=== PATIENT | female | born 1950 | race Caucasian/White ===

== ENCOUNTER 2016-10-29 14:13 | Outpatient (RCR) | payer BC ==
[~2016-10-29 14:13] MED LIST: FERR-57 PO; OMEP-10 GT; VITAMINE C PO
--- OUTSIDE RECORDS SUMMARY | 2016-10-29 14:17 | XMS REPORT | Continuity of Care Document ---
Author Author [facility] Organization [facility] Address Unknown Phone Unavailable Care Team Providers Care Net Technical Architect Name Role Phone ENZO HUGGINS MD PCP Insurance Providers Payer Name Policy Number Subscriber Name Relationship [facility] [id number] Grace Orozco W Jr G8 Other [employer] [id number] Cheyenne Orozco 18 Self / Same As Patient Advance Directives Directive Response Recorded Date/Time Advance Directives No 12/29/14 12:21pm Health Care Power of Director Trial No 12/29/14 12:21pm Organ Donor Yes 12/29/14 12:21pm Problems No known problems or medical conditions. Medications Medication Dose Route Sig Days/Qty Instructions Order Date Discontinued Date Status Ferrous Sulfate 325 Mg PO DAILY 12/29/14 Active [Vitamine C] 1 PO DAILY 12/29/14 Active Omeprazole 20 Mg GT DAILY 30 Qty 12/29/14 Active Social History Social History Problem Response Recorded Date/Time Recent Foreign Travel N SEE [facility] 01/09/2015 10:38am Do you dip or chew tobacco? No 12/29/2014 12:18pm Hospital Discharge Instructions No hospital discharge instructions. Plan of Care No plan of care. Functional Status No functional status results. Allergies, Adverse Reactions, Alerts Allergen Type Severity Reaction Status Last Updated No Known Drug Allergies Active 12/29/14 Immunizations Name Given Type Date of Pneumonia Vaccine 12/29/09 Historical Vital Signs No known vital signs results. Results Laboratory Results Test Name Result Units Flags Reference Collection Date/Time Result Date/ Time Comments White Blood Count 6.2 10^3/uL 4.3-11.0 01/09/2015 10:56am 01/09/2015 11 :06am Red Blood Count 4.81 10^6/uL 4.35-5.85 01/09/2015 10:56am 01/09/2015 11 :06am Hemoglobin 14.1 G/DL 11.5-16.0 01/09/2015 10:56am 01/09/2015 11:06am Hematocrit 42 % 35-52 01/09/2015 10:56am 01/09/2015 11:06am Mean Corpuscular Volume 87 FL 80-99 01/09/2015 10:56am 01/09/2015 11: 06am Mean Corpuscular Hemoglobin 29 PG 25-34 01/09/2015 10:56am 01/09/2015 11:06am Mean Corpuscular Hemoglobin Concent 34 G/DL 32-36 01/09/2015 10:56am 11:06am Platelet Count 260 10^3/uL 130-400 01/09/2015 10:56am 01/09/2015 11: 06am Mean Platelet Volume 9.0 FL 7.4-10.4 01/09/2015 10:56am 01/09/2015 11: 06am Neutrophils (%) (Auto) 57 % 42-75 01/09/2015 10:56am 01/09/2015 11: 06am Lymphocytes (%) (Auto) 32 % 12-44 01/09/2015 10:56am 01/09/2015 11: 06am Monocytes (%) (Auto) 9 % 0-12 01/09/2015 10:56am 01/09/2015 11:06am Eosinophils (%) (Auto) 2 % 0-10 01/09/2015 10:56am 01/09/2015 11:06am Basophils (%) (Auto) 1 % 0-10 01/09/2015 10:56am 01/09/2015 11:06am Neutrophils # (Auto) 3.5 X 10^3 1.8-7.8 01/09/2015 10:56am 01/09/2015 11:06am Lymphocytes # (Auto) 2.0 X 10^3 1.0-4.0 01/09/2015 10:56am 01/09/2015 11:06am Monocytes # (Auto) 0.6 X 10^3 0.0-1.0 01/09/2015 10:56am 01/09/2015 11: 06am Eosinophils # (Auto) 0.2 10^3/uL 0.0-0.3 01/09/2015 10:56am 01/09/2015 11:06am Basophils # (Auto) 0.0 10^3/uL 0.0-0.1 01/09/2015 10:56am 01/09/2015 11 :06am Sodium Level 141 MMOL/L 135-145 01/09/2015 10:56am 01/09/2015 11:23am Potassium Level 4.7 MMOL/L 3.6-5.0 01/09/2015 10:56am 01/09/2015 11: 23am Chloride Level 105 MMOL/L 98-107 01/09/2015 10:56am 01/09/2015 11:23am Carbon Dioxide Level 27 MMOL/L 21-32 01/09/2015 10:56am 01/09/2015 11: 23am Blood Urea Nitrogen 14 MG/DL 7-18 01/09/2015 10:56am 01/09/2015 11: 23am Creatinine 0.77 MG/DL 0.60-1.30 01/09/2015 10:56am 01/09/2015 11:23am BUN/Creatinine Ratio 18 01/09/2015 10:56am 01/09/2015 11:23am Estimat Glomerular Filtration Rate > 60 01/09/2015 10:56am 2014 11:23am GFR INTERPRETIVE DATA UNITS FOR ESTIMATED GFR (eGFR): mL/min/1.73 M2 REFERENCE RANGE FOR ESTIMATED GFR (eGFR) eGFR NORMAL eGFR >60 MODERATELY DECREASED eGFR 30-59 SEVERLY DECREASED eGFR 15-29 KIDNEY FAILURE <15 (OR DIALYSIS) Glucose Level 104 MG/DL 70-105 01/09/2015 10:56am 01/09/2015 11:23am Calcium Level 10.3 MG/DL H 8.5-10.1 01/09/2015 10:56am 01/09/2015 11: 23am Total Bilirubin 0.3 MG/DL 0.1-1.0 01/09/2015 10:56am 01/09/2015 11: 23am Alkaline Phosphatase 83 U/L 40-136 01/09/2015 10:56am 01/09/2015 11: 23am Aspartate Amino Transf (AST/SGOT) 24 U/L 5-34 01/09/2015 10:56am 2014 11:23am Alanine Aminotransferase (ALT/SGPT) 19 U/L 0-55 01/09/2015 10:56am 03/2015 11:23am Total Protein 7.9 G/DL 6.4-8.2 01/09/2015 10:56am 01/09/2015 11:23am Albumin 4.3 G/DL 3.2-4.5 01/09/2015 10:56am 01/09/2015 11:23am Ferritin 17 NG/ML 15-150 01/09/2015 10:56am 01/10/2015 7:18am Iron Level 65 UG/DL 35-180 01/09/2015 10:56am 01/10/2015 7:18am Transferrin % Saturation 18 % 15-50 01/09/2015 10:56am 01/10/2015 7: 18am Total Iron Binding Capacity 358 UG/DL 280-380 01/09/2015 10:56am 2014 7:18am TESTING PERFORMED BY: [facility] [address] [place] [address] Procedures No known history of procedures. Encounters Encounter Location Date/Time Discharged Recurring [facility] 01/09/15 10:38am
[2016-10-29 15:12] LABS: ALANINE AMINOTRANSFERASE 17 U/L (0-55); ALBUMIN 4.3 G/DL (3.2-4.5); ANION GAP 8 MMOL/L (5-14); ASPARTATE AMINO TRANSFERASE 19 U/L (5-34); BILIRUBIN,TOTAL 0.4 MG/DL (0.1-1.0); BLOOD UREA NITROGEN 12 MG/DL (7-18); BUN/CREATININE RATIO 16; CALCIUM 9.3 MG/DL (8.5-10.1); CARBON DIOXIDE 25 MMOL/L (21-32); CHLORIDE 105 MMOL/L (98-107); CREATININE SERUM 0.75 MG/DL (0.60-1.30); GFR ESTIMATED > 60; GLUCOSE 61 MG/DL (70-105); POTASSIUM 4.1 MMOL/L (3.6-5.0); SODIUM 138 MMOL/L (135-145); TOTAL PROTEIN 7.5 G/DL (6.4-8.2)
[2016-10-29 15:18] LABS: BASOPHILS % (AUTO) 0 % (0-10); EOSINOPHILS # (AUTO) 0.2 10^3/uL (0.0-0.3); EOSINOPHILS % (AUTO) 2 % (0-10); LYMPHOCYTES # (AUTO) 2.3 X 10^3 (1.0-4.0); LYMPHOCYTES % (AUTO) 29 % (12-44); MEAN CORPUSCULAR HEMOGLOBIN 30 PG (25-34); MEAN CORPUSCULAR HGB CONC 33 G/DL (32-36); MEAN CORPUSCULAR VOLUME 89 FL (80-99); MEAN PLATELET VOLUME 9.3 FL (7.4-10.4); MONOCYTES # (AUTO) 0.9 X 10^3 (0.0-1.0); MONOCYTES % (AUTO) 12 % (0-12); NEUTROPHILS # (AUTO) 4.4 X 10^3 (1.8-7.8); NEUTROPHILS % (AUTO) 56 % (42-75); PLATELET COUNT 324 10^3/uL (130-400); RED BLOOD COUNT 4.45 10^6/uL (4.35-5.85); RED CELL DISTRIBUTION WIDTH 13.6 % (10.0-14.5); WHITE BLOOD COUNT 7.8 10^3/uL (4.3-11.0)
[2016-10-29 16:49] LABS: %SAT TOTAL IRON BINDING CAPIC 9 % (15-50); TIBC 420 ug/dL (280-380)
[2016-10-30 07:37] LABS: FERRITIN 9 ng/mL (15-150); UIBC 384 ug/dL (55-450)
== END 2017-01-27 | disposition home or self-care (01) ==
LOC: ONC 14:13
PROVIDERS: ATTEND Internal Medicine Hematology & Oncology
DX: D50.9 Iron deficiency anemia, unspecified (principal); K44.9 Diaphragmatic hernia without obstruction or gangrene; K59.00 Constipation, unspecified; Z79.899 Other long term (current) drug therapy
CPT/HCPCS: 80053; 82728; 83540; 85025; 99213

== ENCOUNTER → 2019-11-11 | Outpatient (CLI) | payer SELFPAY ==
[2019-11-11 10:18] LABS: BASOPHILS % (AUTO) 0 % (0-10); EOSINOPHILS % (AUTO) 0 % (0-10); HEMATOCRIT 50 % (35-52); HEMOGLOBIN 16.6 G/DL (11.5-16.0); LYMPHOCYTES # (AUTO) 0.7 X 10^3 (1.0-4.0); LYMPHOCYTES % (AUTO) 8 % (12-44); MEAN CORPUSCULAR HEMOGLOBIN 31 PG (25-34); MEAN CORPUSCULAR HGB CONC 34 G/DL (32-36); MEAN CORPUSCULAR VOLUME 94 FL (80-99); MEAN PLATELET VOLUME 9.3 FL (7.4-10.4); MONOCYTES # (AUTO) 0.5 X 10^3 (0.0-1.0); MONOCYTES % (AUTO) 5 % (0-12); NEUTROPHILS # (AUTO) 8.1 X 10^3 (1.8-7.8); NEUTROPHILS % (AUTO) 87 % (42-75); PLATELET COUNT 323 10^3/uL (130-400); RED CELL DISTRIBUTION WIDTH 12.6 % (10.0-14.5); WHITE BLOOD COUNT 9.3 10^3/uL (4.3-11.0)
[2019-11-11 10:39] LABS: BAND NEUTROPHILS 0 %; BASOPHILS % (MANUAL) 0 %; EOSINOPHILS % (MANUAL) 0 %; LYMPHOCYTES % (MANUAL) 6 %; MONOCYTES % (MANUAL) 3 %; NEUTROPHILS % (MANUAL) 91 %
[2019-11-11 10:40] LABS: RBC MORPH NORMAL
[2019-11-11 10:41] LABS: ALANINE AMINOTRANSFERASE 17 U/L (0-55); ALBUMIN 4.7 GM/DL (3.2-4.5); ALKALINE PHOSPHATASE 90 U/L (40-136); BILIRUBIN,TOTAL 0.5 MG/DL (0.1-1.0); BUN/CREATININE RATIO 13; CALCIUM 10.4 MG/DL (8.5-10.1); CARBON DIOXIDE 29 MMOL/L (21-32); CHLORIDE 104 MMOL/L (98-107); CHOLESTEROL 264 MG/DL (< 200); CREATININE SERUM 0.76 MG/DL (0.60-1.30); GFR ESTIMATED > 60; GLUCOSE 124 MG/DL (70-105); HDL CHOLESTEROL 39 MG/DL (40-60); POTASSIUM 4.4 MMOL/L (3.6-5.0); SODIUM 143 MMOL/L (135-145); TOTAL PROTEIN 8.7 GM/DL (6.4-8.2); TRIGLYCERIDES 131 MG/DL (<150); VLDL CHOLESTEROL 26 MG/DL (5-40)
== END ==
LOC: LAB 09:48
PROVIDERS: ATTEND Nurse Practitioner Family
DX: R03.0 Elevated blood-pressure reading, without diagnosis of hypertension (principal); H81.13 Benign paroxysmal vertigo, bilateral
CPT/HCPCS: 36415; 80053; 80061; 83036; 84443; 85007; 85027

== ENCOUNTER → 2019-12-22 | Outpatient (CLI) | payer OTHER ==
[2019-12-22 09:45] LABS: BASOPHILS % (AUTO) 0 % (0-10); EOSINOPHILS # (AUTO) 0.1 10^3/uL (0.0-0.3); EOSINOPHILS % (AUTO) 2 % (0-10); HEMATOCRIT 45 % (35-52); HEMOGLOBIN 15.2 G/DL (11.5-16.0); LYMPHOCYTES # (AUTO) 1.2 X 10^3 (1.0-4.0); LYMPHOCYTES % (AUTO) 16 % (12-44); MEAN CORPUSCULAR HEMOGLOBIN 32 PG (25-34); MEAN CORPUSCULAR HGB CONC 34 G/DL (32-36); MEAN CORPUSCULAR VOLUME 94 FL (80-99); MEAN PLATELET VOLUME 9.7 FL (7.4-10.4); MONOCYTES # (AUTO) 0.7 X 10^3 (0.0-1.0); MONOCYTES % (AUTO) 9 % (0-12); NEUTROPHILS # (AUTO) 5.7 X 10^3 (1.8-7.8); NEUTROPHILS % (AUTO) 73 % (42-75); PLATELET COUNT 229 10^3/uL (130-400); RED CELL DISTRIBUTION WIDTH 12.7 % (10.0-14.5); WHITE BLOOD COUNT 7.7 10^3/uL (4.3-11.0)
[2019-12-22 10:16] LABS: ALANINE AMINOTRANSFERASE 13 U/L (0-55); ALBUMIN 4.3 GM/DL (3.2-4.5); ALKALINE PHOSPHATASE 82 U/L (40-136); BILIRUBIN,TOTAL 0.6 MG/DL (0.1-1.0); BUN/CREATININE RATIO 14; CALCIUM 9.3 MG/DL (8.5-10.1); CARBON DIOXIDE 26 MMOL/L (21-32); CHLORIDE 106 MMOL/L (98-107); CREATININE SERUM 0.78 MG/DL (0.60-1.30); GFR ESTIMATED > 60; GLUCOSE 83 MG/DL (70-105); POTASSIUM 4.4 MMOL/L (3.6-5.0); SODIUM 142 MMOL/L (135-145); TOTAL PROTEIN 7.8 GM/DL (6.4-8.2)
== END ==
LOC: LAB 09:30
PROVIDERS: ATTEND Family Medicine
DX: R79.89 Other specified abnormal findings of blood chemistry (principal)
CPT/HCPCS: 36415; 80053; 85025